=== PATIENT | female | born 1950 | race Caucasian/White ===

== ENCOUNTER 2021-03-10 13:18 | Emergency (ER) | payer MEDICARE ==
[~2021-03-10] VITALS: Ht 160 cm; Wt 62.5 kg
[2021-03-10] MEDS ORDERED: IV NORMAL SALINE 1000ML BAG 1,000 ML IV ONE (13:45)
--- NOTE | 2021-03-10 14:29 | PHYS DOC ---
Past Medical History Past Medical History: CAD Past Surgical History: Cholecystectomy, Coronary Bypass Surgery, Other Additional Past Surgical Histo: Coronary sent placement in June 2020 Smoking Status: Current Every Day Smoker General Adult EDM: Chief Complaint: CHEST PAIN-NON CARDIAC NATURE HPI: HPI: 70 year old female presents with chest pain that radiates around to her back. The pain started yesterday evening and was initially on-and-off, but is now c onstant. She rates the pain as a 10/10 and says that it alternates between sharp and dull in character. She reports that nothing makes the pain better or worse and that she has associated shortness of breath. She reports leg swelling in her left leg greater than her right that has worsened recently, but has been present chronically. She also reports vomiting and diarrhea which has been present chronically over the past month or so. She took an aspirin this morning. Review of Systems: Review of Systems: Constitutional: Denies fever or chills Eyes: Denies redness or eye pain HENT: Denies nasal congestion or sore throat Respiratory: Denies cough. Reports shortness of breath Cardiovascular: Reports chest pain. Denies palpitations GI: Denies abdominal pain. Reports chronic vomiting and diarrhea. : Denies dysuria or hematuria Musculoskeletal: Reports back pain. Denies joint pain Integument: Denies rash or skin lesions Neurologic: Denies headache, focal weakness or sensory changes Complete systems were reviewed and found to be within normal limits, except as documented in this note. Heart Score: C/O Chest Pain: Yes HEART Score for Chest Pain: HEART Score for Chest Pain Response (Comments) Value History Moderately Suspicious 1 ECG Normal 0 Age > 65 2 Risk Factors >3 Risk Factors or Hx CAD 2 Total 5 Risk Factors: Risk Factors: DM, Current or recent (<one month) smoker, HTN, HLP, family history of CAD, obesity. Risk Scores: Score 0 - 3: 2.5% MACE over next 6 weeks - Discharge Home Score 4 - 6: 20.3% MACE over next 6 weeks - Admit for Clinical Observation Score 7 - 10: 72.7% MACE over next 6 weeks - Early Invasive Strategies Current Medications: Current Medications Medications (Trade) Dose Ordered Sig/Yaritza Start Time Stop Time Status Last Admin Dose Admin Aspirin (Ecotrin) 325 mg 1X ONCE 03/10/21 14:15 11/26/21 14:16 UNV Fentanyl Citrate (Fentanyl 2ml Vial) 50 mcg 1X ONCE 03/10/21 14:15 03/10/21 14:16 UNV Sodium Chloride 1,000 ml @ 1,000 mls/hr 1X ONCE 03/10/21 13:45 03/10/21 14:03 DC Physical Exam: PE: Constitutional: Well developed, well nourished, non-toxic appearance. In distre ss. HENT: Normocephalic, atraumatic Eyes: Conjunctiva normal, no discharge Neck: Normal range of motion, no tenderness, supple Lungs & Thorax: No respiratory distress, equal chest rise and fall. Lungs clear to auscultation bilaterally. Cardiovascular: Regular rate and rhythm with no murmur appreciated. Abdomen: Soft, no tenderness Skin: Warm, dry, no erythema, no rash Extremities: No tenderness, ROM intact, 1+ pretibial edema on the right, 2+ pretibial edema on the left both reported to be chronic, but worse recently. Neurologic: Alert and oriented X 3, normal motor function, normal sensory function, no focal deficits noted Psychologic: Affect normal, judgment normal Current Patient Data: Vital Signs: Vital Signs Date Time Temp Pulse Resp B/P (MAP) Pulse Ox O2 Delivery O2 Flow Rate FiO2 03/10/21 13:31 97.9 79 20 134/58 (83) 100 Room Air 97.9 EKG: EKG: @1:29 pm., NSR at 74 bpm, QT prolongation, QRS 86 ms, QT/QTc 450/500. Radiology/Procedures: Radiology/Procedures: [] Course & Med Decision Making: Course & Med Decision Making Pertinent Labs and Imaging studies reviewed. (See chart for details) 70 year old female presents with chest pain that began yesterday evening. A cardiac workup was initiated, including an ECG, troponins, and a chest x-ray to rule out pain of cardiac nature. Patient requiring admission for further evaluation and treatment. Discussed with (hospitalist) who is in agreement with admission. Discussed findings and plan with patient, who acknowledges understanding and agreement. [] Dragon Disclaimer: Dragon Disclaimer: This electronic medical record was generated, in whole or in part, using a voice recognition dictation system. Departure Departure Impression: Primary Impression: Chest pain Qualified Codes: R07.9 - Chest pain, unspecified Additional Impression: Left against medical advice Disposition: LEFT AGAINST MEDICAL ADVICE Condition: GUARDED Patient Instructions: Chest Pain (Nonspecific), [id number], Discharge Against Medical Advice LUKE WILKINS DO Mar 10, 2021 14:29
[2021-03-10] MEDS ORDERED: ASPIRIN 325 MG TABLET ONE (14:41)
[2021-03-10 14:50] LABS: BASO # 0.3 x10^3/uL (0.0-0.2); BASO % 2 % (0-3); EOS % 0 % (0-3); HEMATOCRIT 39.7 % (36.0-47.0); HEMOGLOBIN 12.8 g/dL (12.0-15.5); LYMPH # 1.9 x10^3/uL (1.0-4.8); LYMPH % 10 % (24-48); MEAN CORPUSCULAR HEMOGLOBIN 33 pg (25-35); MEAN CORPUSCULAR HGB CONC 32 g/dL (31-37); MEAN CORPUSCULAR VOLUME 103 fL (79-100); MONO # 1.8 x10^3/uL (0.0-1.1); MONO % 9 % (0-9); NEUT # 16.3 x10^3/uL (1.8-7.7); NEUT % 80 % (31-73); PLATELET COUNT 179 x10^3/uL (140-400); RED BLOOD COUNT 3.87 x10^6/uL (3.50-5.40); RED CELL DISTRIBUTION WIDTH 19.3 % (11.5-14.5); WHITE BLOOD COUNT 20.3 x10^3/uL (4.0-11.0)
[2021-03-10] MEDS ORDERED: ASPIRIN ENTERIC COATED 325 MG TABLET.DR. PO ONE (15:00)
[2021-03-10] MEDS ORDERED: fentaNYL PF VIAL 100 MCG/2 ML VIAL IV ONE (15:00)
--- NOTE | 2021-03-10 15:05 | RAD ---
EXAM: CHEST 1 VIEW History: Chest pain COMPARISON: 04/14/2005 TECHNIQUE: Single portable radiograph of the chest FINDINGS: The cardiac silhouette is unremarkable. Mild prominent bilateral interstitial markings par ticularly in the bibasilar lungs The costophrenic sulci are clear and well demarcated. IMPRESSION: Mild prominent bilateral interstitial lung changes or interstitial infiltrates. Electronically signed by: Harsha Cooley MD (03/10/2021 3:03 PM) [id number]
[2021-03-10 15:08] LABS: CALCIUM 7.8 mg/dL (8.5-10.1); GFR 6.9; POTASSIUM 3.9 mmol/L (3.5-5.1)
[2021-03-10 15:19] LABS: PROTHROMBIN TIME PATIENT 18.2 SEC (11.7-14.0)
[2021-03-10 15:21] LABS: ALBUMIN 1.6 g/dL (3.4-5.0); ALBUMIN/GLOBULIN RATIO 0.4 (1.0-1.7); MAGNESIUM 2.1 mg/dL (1.8-2.4); TOTAL BILIRUBIN 1.6 mg/dL (0.2-1.0); TOTAL PROTEIN 5.2 g/dL (6.4-8.2)
[2021-03-10 15:28] LABS: % BANDS 3 % (0-9); % LYMPHS 13 % (24-48); % MONOS 8 % (0-10); % SEGS 76 % (35-66); ANISOCYTOSIS SLIGHT; NUCLEATED RBC 1; PLT ESTIMATE ADEQUATE (ADEQUATE); TOXIC GRANULATION SLIGHT
[2021-03-10 15:57] VITALS: BP 123/55
--- NOTE | 2021-03-10 17:21 | EKG ---
[facility] [address] [place] [address] Test Date: 2021-03-10 Test Time: 13:36:42 Pat Name: LUKE VILLAREAL Department: Room: Gender: F Unit Aid: : 1950 Requested By: LUKE WILKINS Order Number: [id number] Reading MD: Oscar Moran Measurements Intervals Emerson Rate: 74 P: -90 MT: 112 QRS: 66 QRSD: 86 T: 117 QT: 450 QTc: 500 Interpretive Statements SINUS RHYTHM LOW LIMB LEAD VOLTAGE PROLONGED QT Electronically Signed On 03-13-2021 10:11:44 EXCAVATOR BACKHOE OPERATOR by Oscar Moran
--- NOTE | 2021-03-13 10:49 | NUR ---
IP: Informed pt of negative covid test. Pt verbalized understanding.
== END 2021-03-10 17:11 | disposition left against medical advice (07) ==
LOC: ER 13:18
DX: R07.89 Other chest pain (principal); Z20.822 Contact with and (suspected) exposure to COVID-19; R11.10 Vomiting, unspecified; R19.7 Diarrhea, unspecified; Z95.1 Presence of aortocoronary bypass graft; I25.10 Atherosclerotic heart disease of native coronary artery without angina pectoris; Z95.5 Presence of coronary angioplasty implant and graft; F17.200 Nicotine dependence, unspecified, uncomplicated
CPT/HCPCS: 36415; 71045; 80053; 83690; 83735; 83880; 84484; 85007; 85025; 85610; 87426; 93005; 96374; 99285; J3010; U0003; U0005